=== PATIENT | male | born 1995 | race American Indian/Alaskan Native ===

== ENCOUNTER 2018-08-08 11:08 | Emergency (ER) | payer OTHER ==
--- NOTE | 2018-08-08 11:47 | Emergency Department Report ---
Chief Complaint: Upper Respiratory Infection Stated Complaint: SICK/FEET PAIN Time Seen by Provider: 08/08/18 11:44 - HPI History of Present Illness: This is a 23 y.o. male that presents to the ER with productive cough x 2 months. Denies fever, chills, chest pain, and coryza. No PMH Current daily marijuana smoker. - Exam Vital Signs: Vital Signs 08/08/18 11:44 Temperature 98.8 F Pulse Rate 71 Respiratory 16 Rate Blood Pressure 123/84 [Right] O2 Sat by Pulse 99 Oximetry MSE screening note: Focused history and physical exam performed. Due to findings the following was ordered: CXR ED Disposition for MSE Condition: Stable
--- NOTE | 2018-08-08 12:39 | XRay Report ---
ROUTINE CHEST, TWO VIEWS: HISTORY: Cough. The trachea, heart, mediastinal contour, lung pantoja and bony thorax are unremarkable. IMPRESSION: Unremarkable chest x-ray.
--- NOTE | 2018-08-08 13:40 | Emergency Department Report ---
Minor Respiratory - HPI Chief Complaint: Upper Respiratory Infection Stated Complaint: SICK/FEET PAIN Time Seen by Provider: 08/08/18 11:44 Minor Respiratory: Yes Able to Tolerate Fluids, Yes Cough, No Rhinorrhea, No Sore Throat, No Ear Pain, No Sick Contacts, No Hemoptysis, No Chest Pain, No Shortness of Breath, No Fever Other History: This is a 23-year-old male presents to ED complaining of cough and generalized in nature for the past 2 months. Patient states some ago about 3 weeks ago he took his friend's antibiotics and things that helped with the coughing. Patient also states that he stubbed his toes times and has some toe pain ED Review of Systems ROS: Stated complaint: SICK/FEET PAIN Other details as noted in HPI Comment: All other systems reviewed and negative ED Past Medical Hx - Past Medical History Previous Medical History?: No - Surgical History Past Surgical History?: No - Social History Smoking Status: Never Smoker Substance Use Type: Alcohol, Marijuana - Medications Home Medications: Home Medications Medication Instructions Recorded Confirmed Last Taken Type Benzonatate [Tessalon Perles] 100 mg PO Q8HR #20 capsule 08/08/18 Unknown Rx Minor Respiratory Exam - Exam General: Vital signs noted. No distress. Alert and acting appropriately. HEENT: Yes Moist Mucous Membranes, No Pharyngeal Erythema, No Pharyngeal Exudates, No Rhinorrhea, No Conjuctival Injection, No Frontal Tenderness, No Maxillary Tenderness Ear: Neither TM Bulge, Neither TM Erythema, Neither EAC Pain, Neither EAC Discharge Neck: Yes Supple, No Adenopathy Lungs: Yes Good Air Exchange, No Wheezes, No Ronchi, No Stridor, No Cough, No Labored Respirations, No Retractions, No Use of Accessory Muscles, No Other Abnormal Lung Sounds Heart: Yes Regular, No Murmur Abdomen: Yes Normal Bowel Sounds, No Tenderness, No Peritoneal Signs Skin: No Rash, No Edema Neurologic: Alert and oriented, no deficits. Musculoskeletal: Unremarkable. ED Course Vital Signs 08/08/18 11:44 Temperature 98.8 F Pulse Rate 71 Respiratory 16 Rate Blood Pressure 123/84 [Right] O2 Sat by Pulse 99 Oximetry ED Medical Decision Making - Medical Decision Making 23-year-old female presents with bronchitis Chest x-ray shows no acute findings. Vital signs are normal. Discussed with patient follow-up with primary care physician Patient is in no acute or respiratory distress Critical care attestation.: If time is entered above; I have spent that time in minutes in the direct care of this critically ill patient, excluding procedure time. ED Disposition Clinical Impression: Upper respiratory infection, Bronchitis Disposition: TO HOME OR SELFCARE Is pt being admited?: No Does the pt Need Aspirin: No Condition: Stable Instructions: Chronic Bronchitis (ED) Additional Instructions: Make sure to follow up with the primary care physician as discussed. Take all your medications as you've been prescribed. If you have any worsening symptoms or develop new symptoms please return to ED immediately. Prescriptions: Benzonatate [Tessalon Perles] 100 mg PO Q8HR #20 capsule Referrals: FACUNDO RIBEIRO DPM [Staff Physician] - 3-5 Days Forms: Work/School Release Form(ED) Time of Disposition: 13:42
[2018-08-08 13:52] VITALS: BP 120/80
== END 2018-08-08 13:50 | disposition home or self-care (01) ==
LOC: ED 11:08
DX: J06.9 Acute upper respiratory infection, unspecified (principal); J40 Bronchitis, not specified as acute or chronic; F12.10 Cannabis abuse, uncomplicated
CPT/HCPCS: 71046; 99283